=== PATIENT | female | born 1995 | race Caucasian/White ===

== ENCOUNTER 2019-03-12 10:05 | Emergency (ER) | payer BC ==
[2019-03-12 10:44] VITALS: BP 105/66
--- NOTE | 2019-03-12 11:44 | UC ---
Throat Pain/Nasal Jose HPI - HPI Summary HPI Summary: 23 -year-old female who moves had head congestion and sore throat for 2 days. She is graduating tomorrow. - History of Current Complaint Chief Complaint: UCRespiratory Stated Complaint: SINUS COUGH Time Seen by Provider: 03/12/19 11:06 Hx Obtained From: Patient ?: No Onset/Duration: Gradual Onset Severity: Mild Pain Intensity: 0 Cough: None Associated Signs & Symptoms: Positive: Nasal Discharge - Allergies/Home Medications Allergies/Adverse Reactions: Allergies Allergy/AdvReac Type Severity Reaction Status Date / Time No Known Allergies Allergy Verified 03/12/19 10:43 Home Medications: Home Medications Norethindr/Eth Estradiol(Nf) [Lo Loestrin Fe (NF)] 1 tab PO 03/12/19 [History] PMH/Surg Hx/FS Hx/Imm Hx Previously Healthy: Yes - Surgical History Surgical History: None - Family History Known Family History: Positive: Non-Contributory - Social History Occupation: Student Alcohol Use: Weekly Substance Use Type: None Smoking Status (MU): Never Smoked Tobacco Review of Systems All Other Systems Reviewed And Are Negative: Yes ENT: Positive: Sore Throat, Nasal Discharge Is Patient Immunocompromised?: No Physical Exam Triage Information Reviewed: Yes Appearance: Well-Appearing, No Pain Distress, Well-Nourished Vital Signs: Initial Vital Signs Temp 98.0 F 03/12/19 10:41 Pulse 84 03/12/19 10:41 Resp 18 03/12/19 10:41 BP 105/66 03/12/19 10:41 Pulse Ox 100 03/12/19 10:41 Vital Signs Reviewed: Yes Eye Exam: Normal ENT: Positive: Pharynx normal, Nasal congestion, Nasal drainage - Clear nasal coryza, TMs normal, Uvula midline. Negative: Trismus Neck: Positive: Supple, Nontender, No Lymphadenopathy Respiratory: Positive: Lungs clear, Normal breath sounds, No respiratory distress, No accessory muscle use Cardiovascular: Positive: RRR, No Murmur, Pulses Normal, Brisk Capillary Refill Abdomen Description: Positive: Nontender, No Organomegaly, Soft Bowel Sounds: Positive: Present Musculoskeletal Exam: Normal Neurological Exam: Normal Psychological Exam: Normal Skin Exam: Normal Throat Pain/Nasal Course/Dx - Course Course Of Treatment: Rapid strep test was positive. Patient is graduating from college tomorrow. She is to change her toothbrush in 24 hours, increase fluids and take Tylenol or Motrin for pain. She is agreeable to this plan of action if she has no improvement in 4 or 5 days she is to follow-up with her primary care provider at home. - Differential Dx/Diagnosis Provider Diagnosis: Strep pharyngitis Discharge - Sign-Out/Discharge Documenting (check all that apply): Patient Departure All imaging exams completed and their final reports reviewed: No Studies - Discharge Plan Condition: Fair Disposition: HOME Prescriptions: Amoxicillin PO (*) [Amoxicillin 875 MG (*)] 875 mg PO BID 10 Days #20 tab Patient Education Materials: Strep Throat (DC) Referrals: No Primary Care Phys,NOPCP [Primary Care Provider] - SARIKA LIRA [[email or web address], [employer], OTHER] - Additional Instructions: Increase fluids, warm saltwater gargles, throat lozenges, change her toothbrush in 24 hours, take the antibiotic twice a day for 10 days. Follow up at the [facility] or your primary care provider if no improvement in 3 or 4 days. - Billing Disposition and Condition Condition: FAIR Disposition: Home
== END 2019-03-12 12:08 | disposition home or self-care (01) ==
LOC: UCCORT 10:05
DX: J02.0 Streptococcal pharyngitis (principal)
CPT/HCPCS: 87651; 99202; G0463